=== PATIENT | female | born 1995 | race Two or more races ===

== ENCOUNTER 2017-09-20 10:28 | Emergency (ER) | payer SELFPAY ==
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
[2017-09-20 12:02] LABS: APPEARANCE,URINE SLIGHTLY-CLOUDY; BILIRUBIN,URINE NEGATIVE (NEGATIVE); GLUCOSE, URINE NEGATIVE (NEGATIVE); KETONES,URINE NEGATIVE (NEGATIVE); LEUKOCYTE ESTERASE,URINE SMALL (NEGATIVE); NITRITE,URINE NEGATIVE (NEGATIVE); PROTEIN,URINE NEGATIVE (NEGATIVE); URINE SPECIFIC GRAVITY 1.009; UROBILINOGEN,URINE NEGATIVE mg/dL (<2.0)
[2017-09-20] MEDS ORDERED: ACETAMINOPHEN 325 MG TABLET PO ONE (12:12)
--- NOTE | 2017-09-20 13:41 | RADIOLOGY REPORT (SQ) ---
EXAM DESCRIPTION: U/S NON OB PEL TV W/DOPPLER COMPLETED DATE/TIME: 09/20/2017 1:16 pm REASON FOR STUDY: rlq pain COMPARISON: None. TECHNIQUE: Dynamic and static grayscale images acquired of the pelvis via transvaginal approach and recorded on PACS. Additional selected color Doppler and spectral images recorded. LIMITATIONS: None. FINDINGS: UTERUS: Contour normal. There is a questionable uterine fibroid measuring 2.3 x 1.9 x 2.1 cm in diameters. ENDOMETRIAL STRIPE: No focal or generalized thickening. No masses. CERVIX: No nabothian cysts. RIGHT OVARY: Hypoechoic mass is identified with internal debris measuring 5.9 x 4.6 x 4.5 cm in diame ters. The differential possibilities would include a complex ovarian cyst versus possible endometriom a. RIGHT OVARY DOPPLER: Normal arterial vascular flow without evidence for torsion. LEFT OVARY: No abnormal masses. LEFT OVARY DOPPLER: Normal arterial vascular flow without evidence for torsion. FREE FLUID: None noted. OTHER: No other significant finding. MEASUREMENTS: UTERUS: 8.7 x 5.7 x 5.2 cm ENDOMETRIAL STRIPE: 4 paula RIGHT OVARY: 6.6 x 5.4 x 5.2 cm LEFT OVARY: 2.2 x 2.1 x 3.7 cm IMPRESSION: Hypoechoic mass involving the right ovary as noted above which could represent a complex ovarian cyst versus is a possible endometrioma. Other etiologies cannot be completely excluded. Fo llow-up is recommended. Possible small uterine fibroid. Other findings as noted above TECHNICAL DOCUMENTATION: JOB ID: [id number] All Rights Reserved
[2017-09-20 15:45] VITALS: BP 123/79
== END 2017-09-20 14:30 | disposition home or self-care (01) ==
LOC: ER 10:28
DX: N83.201 Unspecified ovarian cyst, right side (principal); R10.31 Right lower quadrant pain
CPT/HCPCS: 76830; 81001; 81025; 93976; 99284

== ENCOUNTER 2017-10-02 20:09 | Emergency (ER) | payer SELFPAY ==
--- NOTE | 2017-10-02 22:21 | ER Document Report ---
ED General - General Chief Complaint: Vaginal Bleeding Stated Complaint: VAGINAL BLEEDING Time Seen by Provider: 10/02/17 22:00 Notes: Patient is a 22-year-old female who presents with complaint of heavy vaginal bleeding. Patient says she has been bleeding since Sunday. She missed her period last month and this month started having bleeding. She says her menstrual periods are typically regular. She does have an Implanon in place it has been there for 4 years. She says that it has never regular.. She has been on the forms of control as well which have never regulated her periods. She said this menstrual period is heavy even for her. She said she is gone through 12 large tampons and 6 hours. She says she passes normal sinus clots. She denies any large clots. She says it is more of just a continuous flow. She denies any lightheadedness or dizziness. She denies any difficulty breathing. She has no other complaints at this time. She says she does smoke a a few cigarettes a day. TRAVEL OUTSIDE OF THE [place] IN LAST 30 DAYS: No - Related Data Allergies/Adverse Reactions: amoxicillin [Amoxicillin] Allergy (Verified 09/20/17 10:37) Past Medical History - Social History Smoking Status: Current Some Day Smoker Frequency of alcohol use: None Drug Abuse: None Family History: Reviewed & Not Pertinent Patient has suicidal ideation: No Patient has homicidal ideation: No Renal/ Medical History: Denies: Hx Peritoneal Dialysis - Immunizations Immunizations up to date: Yes Review of Systems - Review of Systems Notes: My Normal Review Basic REVIEW OF SYSTEMS: CONSTITUTIONAL : Denies fever, chills, or sweats. Denies recent illness. EENT: Some nasal congestion. CARDIOVASCULAR: Denies chest pain. GENITOURINARY: Denies difficulty urinating, painful urination, burning, frequency, or blood in urine. GASTROINTESTINAL: Mild lower abdominal pain. Denies nausea, vomiting, or diarrhea. FEMALE GENITOURINARY: Heavy vaginal bleeding MUSCULOSKELETAL: Denies neck or back pain or joint pain or swelling. SKIN: Denies rash or skin lesions. NEUROLOGICAL: Denies altered mental status or loss of consciousness. Denies headache. Denies weakness or paralysis or loss of use of either side. Denies problems with gait or speech. Denies sensory or motor loss. ALL OTHER SYSTEMS REVIEWED AND NEGATIVE. Physical Exam - Vital signs Vitals: Temp Pulse Resp BP Pulse Ox 98.6 F 89 18 121/85 98 10/02/17 20:36 10/02/17 20:36 10/02/17 20:36 10/02/17 20:36 10/02/17 20:36 - Notes Notes: General Appearance: Well nourished, alert, cooperative, no acute distress, no obvious discomfort. Vitals: reviewed, See vital signs table. Head: no swelling or tenderness to the head Eyes: PERRL, EOMI, Conjuctiva clear Mouth: No decreasd moisture Lungs: No wheezing, No rales, No rhonci, No accessory muscle use, good air exchange bilaterally. Heart: Normal rate, Regular rythm, No murmur, no rub Abdomen: Normal BS, soft, No rigidity, No reproducible abdominal tenderness palpation, No guarding, no rebound, Pelvic exam: No clots in cervical office. I do not see any cervical lesions on speculum exam. Smaller moderate amount of blood in vaginal canal. No large active hemorrhage at this time. No clots in vaginal canal. Extremities: strength 5/5 in all extremities, good pulses in all extremities, no swelling or tenderness in the extremities, no edema. Skin: warm, dry, appropriate color, no rash Neuro: speech clear, oriented x 3, normal affect, responds appropriately to questions. Course - Re-evaluation Re-evalutation: 10/03/17 06:30 Patient's has what appears to be signs of endometriosis on her previous ultrasound. This would explain why she has such irregular menstrual periods. Hemoglobin is normal. Pelvic exam shows some active vaginal bleeding but it is not a huge hemorrhage. Feel that the patient states be discharged home and I will refer her to gynecology. I informed her she must return to ER immediately if she has worsening heavy bleeding, lightheadedness, dizziness, difficulty breathing, or if she feels unwell. Patient agrees with plan and will be discharged home. Dictation of this chart was performed using voice recognition software; therefore, there may be some unintended grammatical errors. - Vital Signs Vital signs: Temp Pulse Resp BP Pulse Ox 99.1 F 97 18 131/81 H 98 10/03/17 01:10 10/03/17 01:10 10/03/17 01:10 10/03/17 01:10 10/03/17 01:10 - Laboratory Result Diagrams: 10/02/17 22:35 Discharge - Discharge Clinical Impression: Abnormal vaginal bleeding Condition: Good Disposition: HOME, SELF-CARE Additional Instructions: Your ultrasound from your previous visit has findings consistent with endmetriosis. This will cause symptoms very simialr to what you have been having including recurrent pain and heavy bleeding. Please call the land manager , Dr. Mayer, for a close follow up appointment and discuss removal of your Implanon and further treatment options for endometriosis. Please take Ibuprofen 800mg every 6 hours with food for pain. Please return to the ER if you have wosneing bleeding, fevers, feel light headed, have difficulty breathing, or feel unwell. Forms: Return to Work Referrals: MISSAEL MAYER MD [ACTIVE STAFF] - 10/04/17 (call the office for a close follw up appointment.)
[2017-10-02 23:02] LABS: ABSOLUTE EOSINOPHILS # (AUTO) 0.2 10^3/uL (0.0-0.6); ABSOLUTE LYMPHOCYTES (AUTO) 2.1 10^3/uL (0.5-4.7); ABSOLUTE MONOCYTES (AUTO) 0.6 10^3/uL (0.1-1.4); ABSOLUTE NEUT (AUTO) 7.5 10^3/uL (1.7-8.2); BASOPHILS % (AUTO) 0.4 % (0-2); EOSINOPHILS % (AUTO) 2.4 % (0-6); HEMATOCRIT 38.2 % (36.0-47.0); HEMOGLOBIN 13.1 g/dL (12.0-15.5); HGB HCT DIFFERENCE 1.1; LYMPHOCYTES % (AUTO) 20.3 % (13-45); MEAN CORPUSCULAR HEMOGLOBIN 30.1 pg (27.0-33.4); MEAN CORPUSCULAR HGB CONC 34.2 g/dL (32.0-36.0); MEAN CORPUSCULAR VOLUME 88 fl (80-97); MONOCYTES % (AUTO) 5.7 % (3-13); RED BLOOD COUNT 4.34 10^6/uL (3.72-5.28); RED CELL DISTRIBUTION WIDTH 13.6 % (11.5-14.0); SEGMENTED NEUTROPHILS % (AUTO) 71.2 % (42-78); WHITE BLOOD COUNT 10.5 10^3/uL (4.0-10.5)
[2017-10-03] MEDS ORDERED: IBUPROFEN 800 MG TABLET PO ONE (00:44)
[2017-10-03 01:17] VITALS: BP 131/81
== END 2017-10-03 01:25 | disposition home or self-care (01) ==
LOC: ER 20:09
DX: N93.8 Other specified abnormal uterine and vaginal bleeding (principal); F17.200 Nicotine dependence, unspecified, uncomplicated; Z88.0 Allergy status to penicillin
CPT/HCPCS: 36415; 84703; 85025; 86850; 86900; 86901; 99284

== ENCOUNTER 2017-12-22 16:56 | Emergency (ER) | payer SELFPAY ==
--- NOTE | 2017-12-22 17:31 | ER Document Report ---
ED Medical Screen (RME) - General Chief Complaint: Dizziness Stated Complaint: DIZZY Time Seen by Provider: 12/22/17 17:25 Notes: Patient says she has been experiencing dizziness for the past 3 days, all the time, each day. Also feels "faintness", but has never lost consciousness. She has a control implant in her left arm since 2013 and it is due to be removed soon. She is concerned that it may not be working and she might have become . Last period was December 04. Denies any nausea or vomiting. Denies diarrhea. In fact, she complains of having some constipation, but was able to have a bowel movement here. Has noticed some urinary frequency. Patient has had no abdominal surgeries. On no prescription medications. TRAVEL OUTSIDE OF THE [place] IN LAST 30 DAYS: No - Related Data Allergies/Adverse Reactions: amoxicillin [Amoxicillin] Allergy (Verified 09/20/17 10:37) Past Medical History - Social History Frequency of alcohol use: Occasional Drug Abuse: None Renal/ Medical History: Denies: Hx Peritoneal Dialysis - Immunizations Immunizations up to date: Yes Physical Exam - Vital signs Vitals: Temp Pulse Resp BP Pulse Ox 98.2 F 93 18 114/74 98 12/22/17 17:04 12/22/17 17:04 12/22/17 17:04 12/22/17 17:04 12/22/17 17:04 Course - Vital Signs Vital signs: Temp Pulse Resp BP Pulse Ox 98.2 F 93 18 114/74 98 12/22/17 17:04 12/22/17 17:04 12/22/17 17:04 12/22/17 17:04 12/22/17 17:04
--- NOTE | 2017-12-22 17:56 | EKG REPORT ---
SEVERITY:- NORMAL ECG - SINUS RHYTHM : Confirmed by: Reagan Carson MD 22-Dec-2017 17:56:17
[2017-12-22 18:03] LABS: ABSOLUTE EOSINOPHILS # (AUTO) 0.2 10^3/uL (0.0-0.6); ABSOLUTE LYMPHOCYTES (AUTO) 2.2 10^3/uL (0.5-4.7); ABSOLUTE MONOCYTES (AUTO) 0.5 10^3/uL (0.1-1.4); ABSOLUTE NEUT (AUTO) 3.5 10^3/uL (1.7-8.2); BASOPHILS % (AUTO) 0.7 % (0-2); EOSINOPHILS % (AUTO) 3.8 % (0-6); HEMOGLOBIN 13.4 g/dL (12.0-15.5); LYMPHOCYTES % (AUTO) 33.7 % (13-45); MEAN CORPUSCULAR HGB CONC 34.2 g/dL (32.0-36.0); MEAN CORPUSCULAR VOLUME 88 fl (80-97); MONOCYTES % (AUTO) 7.6 % (3-13); PLATELET COUNT 257 10^3/uL (150-450); RED BLOOD COUNT 4.46 10^6/uL (3.72-5.28); RED CELL DISTRIBUTION WIDTH 14.3 % (11.5-14.0); SEGMENTED NEUTROPHILS % (AUTO) 54.2 % (42-78); TOTAL CELLS COUNTED % (AUTO) 100 %; WHITE BLOOD COUNT 6.4 10^3/uL (4.0-10.5)
[2017-12-22 18:04] LABS: APPEARANCE,URINE CLEAR; BILIRUBIN,URINE NEGATIVE (NEGATIVE); COLOR,URINE YELLOW; GLUCOSE, URINE NEGATIVE (NEGATIVE); KETONES,URINE NEGATIVE (NEGATIVE); LEUKOCYTE ESTERASE,URINE TRACE (NEGATIVE); NITRITE,URINE NEGATIVE (NEGATIVE); PROTEIN,URINE NEGATIVE (NEGATIVE); URINE SPECIFIC GRAVITY 1.012; UROBILINOGEN,URINE NEGATIVE mg/dL (<2.0)
[2017-12-22 18:25] LABS: ALANINE AMINOTRANSFERASE 31 U/L (9-52); ALBUMIN 4.4 g/dL (3.5-5.0); ALKALINE PHOSPHATASE 61 U/L (38-126); ANION GAP 11 (5-19); ASPARTATE AMINO TRANSFERASE 28 U/L (14-36); BILIRUBIN,DIRECT 0.2 mg/dL (0.0-0.4); BILIRUBIN,TOTAL 0.4 mg/dL (0.2-1.3); BLOOD UREA NITROGEN 12 mg/dL (7-20); CALCIUM 9.9 mg/dL (8.4-10.2); CARBON DIOXIDE 25 mmol/L (22-30); CHLORIDE 104 mmol/L (98-107); GLUCOSE 74 mg/dL (75-110); POTASSIUM 4.6 mmol/L (3.6-5.0); SODIUM 140.1 mmol/L (137-145); TOTAL PROTEIN 7.3 g/dL (6.3-8.2)
[2017-12-22 18:40] LABS: FREE T4 (FREE THYROXINE) 0.99 ng/dL (0.78-2.19)
[2017-12-22 18:53] LABS: THYROID STIMULATING HORMONE 0.61 uIU/mL (0.47-4.68)
--- NOTE | 2017-12-22 19:15 | ER Document Report ---
ED General - General Chief Complaint: Abdominal Pain Stated Complaint: DIZZY Time Seen by Provider: 12/22/17 17:25 Notes: Patient is a 22-year-old female without past medical history who presents with multiple complaints. Patient reports that for the past 3 days she has had intermittent lightheadedness, body aches, abdominal cramping, numbness and tingling in all of her extremities, and a headache. Nothing seems to improve or worsen the symptoms. She is uncertain whether or not she has had similar symptoms in the past. She has not seen her primary doctor regarding today's concerns. She denies any focal weakness, inability to ambulate, persistent vomiting, vaginal bleeding, vaginal discharge, or hematuria. She does note intermittent dysuria. TRAVEL OUTSIDE OF THE [place] IN LAST 30 DAYS: No - Related Data Allergies/Adverse Reactions: amoxicillin [Amoxicillin] Allergy (Verified 09/20/17 10:37) Past Medical History - General Information source: Patient - Social History Smoking Status: Never Smoker Chew tobacco use (# tins/day): No Frequency of alcohol use: None Drug Abuse: None Lives with: Family Family History: Reviewed & Not Pertinent Patient has suicidal ideation: No Patient has homicidal ideation: No Renal/ Medical History: Denies: Hx Peritoneal Dialysis - Immunizations Immunizations up to date: Yes Review of Systems - Review of Systems Notes: Constitutional: Negative for fever. HENT: Negative for sore throat. Eyes: Negative for visual changes. Cardiovascular: Negative for chest pain. Respiratory: Negative for shortness of breath. Gastrointestinal: Positive for abdominal cramping Genitourinary: Positive for dysuria. Musculoskeletal: Negative for back pain. Skin: Negative for rash. Neurological: Positive for intermittent headaches and paresthesias. 10 point ROS negative except as marked above and in HPI. Physical Exam - Vital signs Vitals: Temp Pulse Resp BP Pulse Ox 98.2 F 93 18 114/74 98 12/22/17 17:04 12/22/17 17:04 12/22/17 17:04 12/22/17 17:04 12/22/17 17:04 Interpretation: Normal Notes: PHYSICAL EXAMINATION: GENERAL: Well-appearing, well-nourished and in no acute distress. HEAD: Atraumatic, normocephalic. EYES: Pupils equal round and reactive to light, extraocular movements intact, sclera anicteric, conjunctiva are normal. ENT: nares patent, oropharynx clear without exudates. Moist mucous membranes. NECK: Normal range of motion, supple without lymphadenopathy LUNGS: Breath sounds clear to auscultation bilaterally and equal. No wheezes rales or rhonchi. HEART: Regular rate and rhythm without murmurs ABDOMEN: Soft, nontender, normoactive bowel sounds. No guarding, no rebound. No masses appreciated. EXTREMITIES: Normal range of motion, no pitting or edema. No cyanosis. NEUROLOGICAL: No focal neurological deficits. Moves all extremities spontaneously and on command. PSYCH: Normal mood, normal affect. SKIN: Warm, Dry, normal turgor, no rashes or lesions noted. Course - Re-evaluation Re-evalutation: 12/22/17 19:11 Patient presents with multiple vague complaints that did not appear to be concerning for any acute life-threatening pathology. Vitals are within normal limits at triage and at time of discharge. Physical examination is unremarkable. Patient has tolerated oral intake without difficulty. Patient was not noted to be in distress at any point during their ER visit. At this time, based on the reassuring evaluation, I do not suspect an acute PA, pulmonary embolus, aortic dissection, acute intra-abdominal pathology, stroke, or sepsis.Will discharge with return precautions and follow-up recommendations. Verbal discharge instructions given a the bedside and opportunity for questions given. Medication warnings reviewed. Patient is in agreement with this plan and has verbalized understanding of return precautions and the need for primary care follow-up in the next 24-72 hours. - Vital Signs Vital signs: Temp Pulse Resp BP Pulse Ox 98.2 F 75 14 116/74 98 12/22/17 19:46 12/22/17 19:46 12/22/17 19:46 12/22/17 19:46 12/22/17 19:46 - Laboratory Result Diagrams: 12/22/17 17:45 12/22/17 17:45 Laboratory results interpreted by me: 12/22/17 12/22/17 12/22/17 17:45 17:45 17:45 RDW 14.3 H Glucose 74 L Ur Leukocyte Esterase TRACE H - EKG Interpretation by Me Additional EKG results interpreted by me: 12/22/17 19:13 Sinus rhythm. Rate 66. No ST elevations or depressions. QTC is 390. Discharge - Discharge Clinical Impression: Multiple complaints, Lightheadedness, Dysuria Condition: Good Disposition: HOME, SELF-CARE Additional Instructions: Please return to the emergency room immediately if you experience any concerning symptoms including high fevers, severe headache, chest pain, difficulty breathing, abdominal pain, slurred speech, numbness or weakness in your arms or legs, or any other symptom that concerns you. Your labs and EKG are all normal. Please continue to stay very hydrated drinking plenty of water throughout the day. Forms: Return to Work
[2017-12-22 19:48] VITALS: BP 116/74
== END 2017-12-22 19:50 | disposition home or self-care (01) ==
LOC: ER 16:56
DX: R42 Dizziness and giddiness (principal); R30.0 Dysuria; R10.9 Unspecified abdominal pain; R20.0 Anesthesia of skin; R20.2 Paresthesia of skin; R51 Headache; Z88.0 Allergy status to penicillin
CPT/HCPCS: 36415; 80053; 81001; 81025; 84439; 84443; 85025; 93005; 93010; 99284

== ENCOUNTER 2018-02-28 10:14 | Emergency (ER) | payer SELFPAY ==
--- NOTE | 2018-02-28 10:26 | ER Document Report ---
ED GI/ - General Chief Complaint: Pelvic Pain Stated Complaint: PELVIC PAIN Time Seen by Provider: 02/28/18 10:26 Mode of Arrival: Ambulatory Information source: Patient Notes: 23-year-old female complaining of bilateral pelvic pain and heavy vaginal bleeding that started yesterday. She has had intermittent pink spotting for months and heavy vaginal bleeding 2 weeks ago. She does have a neck: None that has been in her left arm for 4 years. No other control used. No vaginal discharge or odor. No dysuria. No dyspareunia. No fever or chills. No back pain. She was diagnosed with an endometrioma in 2017 on the right and possible small fibroid. She has not seen DIRECTOR OF PLANT OPERATIONS. The Nexplanon was put in by [employer] and she no longer sees them as they are no longer in the . TRAVEL OUTSIDE OF THE [place] IN LAST 30 DAYS: No - Related Data Allergies/Adverse Reactions: amoxicillin [Amoxicillin] Allergy (Verified 02/28/18 10:26) Past Medical History - General Information source: Patient - Social History Smoking Status: Never Smoker Frequency of alcohol use: None Drug Abuse: None Lives with: Family Family History: Reviewed & Not Pertinent - Medical History Notes: Renal/ Medical History: Denies: Hx Peritoneal Dialysis Surgical Hx: Negative - Immunizations Immunizations up to date: Yes Review of Systems - Review of Systems Constitutional: No symptoms reported EENT: No symptoms reported Cardiovascular: No symptoms reported Respiratory: No symptoms reported Gastrointestinal: No symptoms reported Genitourinary: No symptoms reported Female Genitourinary: No symptoms reported, See HPI Musculoskeletal: No symptoms reported Skin: No symptoms reported Hematologic/Lymphatic: No symptoms reported Neurological/Psychological: No symptoms reported Physical Exam - Vital signs Vitals: Temp Pulse Resp BP Pulse Ox 98.4 F 78 16 120/83 97 02/28/18 10:18 02/28/18 10:18 02/28/18 10:18 02/28/18 10:18 02/28/18 10:18 Interpretation: Normal - General General appearance: Appears well, Alert - HEENT Head: Normocephalic, Atraumatic Eyes: Normal Pupils: PERRL Mouth/Lips: Normal Neck: Supple - Respiratory Respiratory status: No respiratory distress Chest status: Nontender Breath sounds: Normal Chest palpation: Normal - Cardiovascular Rhythm: Regular Heart sounds: Normal auscultation Murmur: No - Abdominal Inspection: Normal Distension: No distension Bowel sounds: Normal Tenderness: Tender - minaml bilateral lower pelvic Organomegaly: No organomegaly - Back Back: Normal, Nontender. No: CVA tenderness - Extremities General upper extremity: Normal inspection, Nontender, Normal color, Normal ROM , Normal temperature General lower extremity: Normal inspection, Nontender, Normal color, Normal ROM , Normal temperature, Normal weight bearing. No: Gerson's sign - Neurological Neuro grossly intact: Yes Cognition: Normal Orientation: AAOx4 [place] Coma Scale Eye Opening: Spontaneous [place] Coma Scale Verbal: Oriented Zach Coma Scale Motor: Obeys Commands [place] Coma Scale Total: 15 Speech: Normal Motor strength normal: LUE, RUE, LLE, RLE Sensory: Normal - Psychological Associated symptoms: Normal affect, Normal mood - Skin Skin Temperature: Warm Skin Moisture: Dry Skin Color: Normal Course - Re-evaluation Re-evalutation: 02/28/18 11:25 Urinalysis shows 12 RBCs she is bleeding at this time there is a trace of bacteria I will add a urine culture test is negative and wet mount shows 4+ RBCs 3+ bacteria and 3+ epis. Will treat with Flagyl for bacterial vaginosis and have advised her that the Nexplanon is no longer protecting her from that she will need to use another form of control. 02/28/18 12:21 No signs of endometrioma or ovarian cyst on ultrasound. - Vital Signs Vital signs: Temp Pulse Resp BP Pulse Ox 98.4 F 78 16 120/83 97 02/28/18 10:18 02/28/18 10:18 02/28/18 10:18 02/28/18 10:18 02/28/18 10:18 - Laboratory Laboratory results interpreted by me: 02/28/18 10:50 Urine Blood LARGE H Discharge - Discharge Clinical Impression: vagainal bleeding, Bacterial vaginosis, Pelvic pain Condition: Good Disposition: HOME, SELF-CARE Instructions: [facility] [facility], Pelvic Pain ([facility]), Metronidazole ([facility]), Vaginosis , Bacterial ([facility]), Ibuprofen (General) ([facility]) Additional Instructions: see obgyn for the nexplanon removal flagyl twice a day for 1 week, do not drink alcohol when taking this medication Return to the emergency room any worsening of symptoms Copy of labs and ultrasound results given to you Prescriptions: Ibuprofen [Motrin 800 mg Tablet] 800 mg PO Q8HP PRN #30 tablet PRN Reason: Metronidazole [Flagyl 500 mg Tablet] 500 mg PO BID #14 tablet Forms: Return to Work
[2018-02-28 11:10] LABS: BACTERIA (WET MOUNT) 3+ BACTERIA SEEN; EPITHELIALS (WET MOUNT) 3+ EPITHELIALS SEEN; RBCS (WET MOUNT) 4+ RBCS SEEN; T.VAGINALIS (WET MOUNT) NO TRICHOMONAS SEEN; WBCS (WET MOUNT) 1+ WBCS SEEN; YEAST (WET MOUNT) NO YEAST SEEN
[2018-02-28 11:17] LABS: APPEARANCE,URINE CLEAR; BILIRUBIN,URINE NEGATIVE (NEGATIVE); COLOR,URINE STRAW; GLUCOSE, URINE NEGATIVE (NEGATIVE); KETONES,URINE NEGATIVE (NEGATIVE); LEUKOCYTE ESTERASE,URINE NEGATIVE (NEGATIVE); NITRITE,URINE NEGATIVE (NEGATIVE); PROTEIN,URINE NEGATIVE (NEGATIVE); UROBILINOGEN,URINE NEGATIVE mg/dL (<2.0)
--- NOTE | 2018-02-28 12:10 | RADIOLOGY REPORT (SQ) ---
EXAM DESCRIPTION: U/S NON OB PEL TV W/DOPPLER COMPLETED DATE/TIME: 02/28/2018 11:55 am REASON FOR STUDY: pelvic pain, heavy vaginal bleeding COMPARISON: None. TECHNIQUE: Dynamic and static grayscale images acquired of the pelvis via transvaginal approach and recorded on PACS. Additional selected color Doppler and spectral images recorded. LIMITATIONS: None. FINDINGS: UTERUS: Contour normal. No mass. ENDOMETRIAL STRIPE: No focal or generalized thickening. No masses. CERVIX: No nabothian cysts. RIGHT OVARY AND DOPPLER: Normal size. No worrisome masses. Normal arterial vascular flow without evid ence for torsion. LEFT OVARY AND DOPPLER: Normal size. No worrisome masses. Normal arterial vascular flow without evide nce for torsion. FREE FLUID: None noted. OTHER: No other significant finding. MEASUREMENTS: UTERUS: 8.0 x 4.5 x 5.1 cm ENDOMETRIAL STRIPE: 3 mm RIGHT OVARY: 4.0 x 3.0 x 3.2 cm LEFT OVARY: 4.6 x 1.8 x 2.8 cm IMPRESSION: NORMAL TRANSVAGINAL PELVIC ULTRASOUND. TECHNICAL DOCUMENTATION: JOB ID: [id number]- All Rights Reserved Rev Reading location - IP/workstation name: [id number]
[2018-02-28 12:26] VITALS: BP 109/77
[2018-02-28 12:41] LABS: CHLAM PCR NOT DETECTED (NOT DETECT); GON PCR NOT DETECTED (NOT DETECT)
== END 2018-02-28 12:34 | disposition home or self-care (01) ==
LOC: ER 10:14
DX: N76.0 Acute vaginitis (principal); B96.89 Other specified bacterial agents as the cause of diseases classified elsewhere; R10.2 Pelvic and perineal pain; N93.8 Other specified abnormal uterine and vaginal bleeding; Z88.0 Allergy status to penicillin; Z97.5 Presence of (intrauterine) contraceptive device
CPT/HCPCS: 76830; 81001; 81025; 87086; 87210; 87491; 87591; 93976; 99284

== ENCOUNTER 2018-03-02 17:11 | Emergency (ER) | payer SELFPAY ==
[2018-03-02] MEDS ORDERED: DIPH/PERTUSS(ACELL)/TETANUS VAC/PF 0.5 ML SYR (>=10YO) IM ONE (17:39)
--- NOTE | 2018-03-02 17:39 | ER Document Report ---
ED Medical Screen (RME) - General Chief Complaint: Arm Injury Stated Complaint: HAND LACERATION Time Seen by Provider: 03/02/18 17:37 Notes: Patient is a 23-year-old female presents emergency department after punching through a thin glass window. Patient admits to lacerations on the ventral surface of the right forearm. She denies any pain in her fingers, wrist or hand. She is full range of motion equal tennis player strength bilaterally. Unaware of tetanus status. Allergic to amoxicillin. TRAVEL OUTSIDE OF THE [place] IN LAST 30 DAYS: No - Related Data Allergies/Adverse Reactions: amoxicillin [Amoxicillin] Allergy (Verified 03/02/18 17:18) Past Medical History Renal/ Medical History: Denies: Hx Peritoneal Dialysis - Immunizations Immunizations up to date: Yes Physical Exam - Vital signs Vitals: Temp Pulse Resp BP Pulse Ox 98.9 F 118 H 22 H 128/113 H 97 03/02/18 17:20 03/02/18 17:20 03/02/18 17:20 03/02/18 17:20 03/02/18 17:20 - Notes Notes: Lacerations noted on the ventral surface of the right forearm with minimal oozing active bleeding. Wounds without underlying tendon injury or muscle involvement. Approximately 4 lacerations total 3 involving subcutaneous fat and a third into the dermis equivalent with a skin tear. Pressure dressing applied Course - Vital Signs Vital signs: Temp Pulse Resp BP Pulse Ox 98.9 F 118 H 22 H 128/113 H 97 03/02/18 17:20 03/02/18 17:20 03/02/18 17:20 03/02/18 17:20 03/02/18 17:20
[2018-03-02] MEDS ORDERED: LIDOCAINE 1% INJ-PF (10 MG/ML) 30 ML SDV INJ ONE (17:41)
[2018-03-02] MEDS ORDERED: ACETAMINOPHEN 325 MG TABLET PO ONE (17:41)
--- NOTE | 2018-03-02 18:10 | RADIOLOGY REPORT (SQ) ---
EXAM DESCRIPTION: HAND RIGHT 3 VIEWS COMPLETED DATE/TIME: 03/02/2018 6:00 pm REASON FOR STUDY: punched a window, FB COMPARISON: None. EXAM PARAMETERS: NUMBER OF VIEWS: Three views. TECHNIQUE: AP, lateral and oblique radiographic images acquired of the right hand. LIMITATIONS: None. FINDINGS: MINERALIZATION: Normal. BONES: No acute fracture or dislocation. No worrisome bone lesions. JOINTS: No effusions. SOFT TISSUES: No soft tissue swelling. No foreign body. OTHER: No other significant finding. IMPRESSION: NEGATIVE STUDY OF THE RIGHT HAND. NO RADIOGRAPHIC EVIDENCE OF ACUTE INJURY. TECHNICAL DOCUMENTATION: JOB ID: [id number] [employer]- All Rights Reserved Reading location - IP/workstation name: [email or web address]
--- NOTE | 2018-03-02 18:12 | RADIOLOGY REPORT (SQ) ---
EXAM DESCRIPTION: WRIST RIGHT 3 VIEWS COMPLETED DATE/TIME: 03/02/2018 6:00 pm REASON FOR STUDY: punched a window, FB COMPARISON: None. NUMBER OF VIEWS: Three views. TECHNIQUE: AP, lateral, and oblique radiographic images acquired of the right wrist. LIMITATIONS: None. FINDINGS: MINERALIZATION: Normal. BONES: No acute fracture or dislocation. No worrisome bone lesions. Normal alignment. SOFT TISSUES: No soft tissue swelling. No foreign body. OTHER: Radiopaque bandage artifact overlying distal right forearm. No definite radiopaque foreign loni dy seen. IMPRESSION: NO DEFINITE RADIOPAQUE FOREIGN BODY. NO FRACTURE SEEN. TECHNICAL DOCUMENTATION: JOB ID: [id number] SC-[id number] 2010 [employer]- All Rights Reserved Reading location - IP/workstation name: [email or web address]
--- NOTE | 2018-03-02 19:41 | ER Document Report ---
ED General - General Chief Complaint: Arm Injury Stated Complaint: HAND LACERATION Time Seen by Provider: 03/02/18 17:37 Notes: Patient is a 23 year old female without chronic medical problems who presents after she punched a window. Patient sustained multiple lacerations to her right forearm as well as bruising to her right hand. She notes a dull, aching, throbbing pain to the affected areas. Touching the areas worsens the pain. Nothing improves the pain. She denies sustaining additional injuries today. She denies any weakness or numbness. She is right-hand dominant. Her tetanus is not up-to-date. She has not seen her primary doctor regarding today's concerns. TRAVEL OUTSIDE OF THE [place] IN LAST 30 DAYS: No - Related Data Allergies/Adverse Reactions: amoxicillin [Amoxicillin] Allergy (Verified 03/02/18 17:18) Past Medical History - General Information source: Patient - Social History Smoking Status: Current Every Day Smoker Chew tobacco use (# tins/day): No Frequency of alcohol use: Occasional Drug Abuse: None Lives with: Spouse/Significant other Family History: Reviewed & Not Pertinent Patient has suicidal ideation: No Patient has homicidal ideation: No Renal/ Medical History: Denies: Hx Peritoneal Dialysis - Immunizations Immunizations up to date: Yes Review of Systems - Review of Systems Notes: Constitutional: Negative for fever. Eyes: Negative for visual changes. ENT: Negative for facial injury Cardiovascular: Negative for chest injury. Respiratory: Negative for shortness of breath. Gastrointestinal: Negative for abdominal injury. Genitourinary: Negative for genital injury Musculoskeletal: Positive for right hand injury Skin: Positive for multiple right forearm lacerations Neurological: Negative for head injury. Physical Exam - Vital signs Vitals: Temp Pulse Resp BP Pulse Ox 98.9 F 118 H 22 H 128/113 H 97 03/02/18 17:20 03/02/18 17:20 03/02/18 17:20 03/02/18 17:20 03/02/18 17:20 Interpretation: Tachycardic, Hypoxic Notes: PHYSICAL EXAMINATION: GENERAL: Well-appearing, well-nourished and in no acute distress. HEAD: Atraumatic, normocephalic. EYES: Pupils equal round and reactive to light, extraocular movements intact, sclera anicteric, conjunctiva are normal. ENT: nares patent, oropharynx clear without exudates. Moist mucous membranes. NECK: Normal range of motion, supple without lymphadenopathy LUNGS: Breath sounds clear to auscultation bilaterally and equal. No wheezes rales or rhonchi. HEART: Regular rate and rhythm without murmurs ABDOMEN: Soft, nontender, normoactive bowel sounds. No guarding, no rebound. No masses appreciated. EXTREMITIES: AIN, PIN, IO intact bilaterally. RMU sensory distribution intact. Full flexion and extension against resistance of the PIP, DIP and MCP of all digits of the right hand. Mild bruising over the dorsum of the right hand. No obvious deformity of the right hand or wrist. NEUROLOGICAL: No focal neurological deficits. Moves all extremities spontaneously and on command. PSYCH: Normal mood, normal affect. SKIN: Warm, Dry, normal turgor, there are multiple lacerations over the right forearm. There is a 6 cm horizontal laceration over the proximal central forearm with exposure of subcutaneous fat with associated contused tissue. There is a flap type 3 centimeter laceration to the central lateral aspect of the right forearm. Directly below the 6 cm laceration there is an additional 1 cm horizontal laceration. There is an irregular 2 cm laceration to the medial central aspect of the right forearm. Multiple additional superficial abrasions Course - Re-evaluation Re-evalutation: 03/02/18 19:39 Patient presents with multiple lacerations of the right central forearm after punching a window. X-rays of the right hand and wrist are normal without any evidence of acute fracture or dislocation. There is no evidence of retained foreign body. 4 wounds required repair. Please see procedure note for details. These were all closed after irrigation and sterilization. The patient 's tetanus was updated. She has full flexion extension of all digits of the right hand at the DIP, MCP and PIP. Patient has no obvious trauma to the right hand although does complain of some general soreness. X-ray is negative for any fractures. At this time will discharge with return precautions and follow- up recommendations. Verbal discharge instructions given a the bedside and opportunity for questions given. Medication warnings reviewed. Patient is in agreement with this plan and has verbalized understanding of return precautions and the need for primary care follow-up in the next 24-72 hours. - Vital Signs Vital signs: Temp Pulse Resp BP Pulse Ox 98.6 F 84 16 110/72 98 03/02/18 19:51 03/02/18 19:51 03/02/18 19:51 03/02/18 19:51 03/02/18 19:51 - Diagnostic Test Radiology reviewed: Image reviewed, Reports reviewed Radiology results interpreted by me: 03/02/18 19:40 Right hand x-ray: No acute fracture or dislocation Right wrist x-ray: No acute fracture or dislocation Procedures - Laceration/Wound Repair Central forearm Wound length (cm): 6 Wound's Depth, Shape: Superficial Laceration pre-procedure: Sterile PPE donned Anesthetic type: 1% Lidocaine Volume Anesthetic (mLs): 4 Wound explored: Clean Irrigated w/ Saline (mLs): 500 Wound Debrided: Moderate Wound Repaired With: Sutures Suture Size/Type: 4:0 Number of Sutures: 2 - 1 horizontal mattress, running stitch Layer Closure?: No Post-procedure wound care: Sterile dressing applied Post-procedure NV exam normal: Yes Complications: No Central forearm 2 Wound length (cm): 3 Wound's Depth, Shape: Irregular, Flap, Contused tissue Laceration pre-procedure: Sterile PPE donned Anesthetic type: 1% Lidocaine Volume Anesthetic (mLs): 1 Wound explored: Clean Irrigated w/ Saline (mLs): 300 Wound Debrided: Moderate Wound Repaired With: Sutures Suture Size/Type: 4:0 Number of Sutures: 3 Post-procedure wound care: Sterile dressing applied Post-procedure NV exam normal: Yes Complications: No Central forearm 3 Wound length (cm): 1 Wound's Depth, Shape: Superficial Laceration pre-procedure: Sterile PPE donned Anesthetic type: 1% Lidocaine Volume Anesthetic (mLs): 1 Wound explored: Clean Irrigated w/ Saline (mLs): 200 Wound Debrided: Minimal Wound Repaired With: Sutures Suture Size/Type: 4:0 Number of Sutures: 1 Post-procedure wound care: Sterile dressing applied Post-procedure NV exam normal: Yes Complications: No Central forearm 4 Wound length (cm): 2 Wound's Depth, Shape: Superficial, Irregular Laceration pre-procedure: Sterile PPE donned Anesthetic type: 1% Lidocaine Volume Anesthetic (mLs): 1 Wound explored: Clean Irrigated w/ Saline (mLs): 300 Wound Debrided: Minimal Wound Repaired With: Sutures Suture Size/Type: 4:0 Number of Sutures: 1 Layer Closure?: No Post-procedure wound care: Sterile dressing applied Post-procedure NV exam normal: Yes Complications: No Discharge - Discharge Clinical Impression: Multiple lacerations right forearm Laceration of right forearm Qualifiers: Encounter type: initial encounter Qualified Code(s): S51.811A - Laceration without foreign body of right forearm, initial encounter Abrasion of forearm, right Qualifiers: Encounter type: initial encounter Qualified Code(s): S50.811A - Abrasion of right forearm, initial encounter Injury of right hand Qualifiers: Encounter type: initial encounter Qualified Code(s): S69.91XA - Unspecified injury of right wrist, hand and finger(s), initial encounter Condition: Good Disposition: HOME, SELF-CARE Additional Instructions: Please return to your primary doctor, the ED, or an urgent care in 7 days for suture removal. Return immediately if you develop spreading redness around the wound, pus from the wound, worsening pain, or a fever of >100.4. Keep the area clean and dry. Wash gently with soap and water twice daily and cover with antibiotic ointment. Forms: Return to Work
[2018-03-02 20:03] VITALS: BP 110/72
== END 2018-03-02 20:04 | disposition home or self-care (01) ==
LOC: ER 17:11
PROC: 0HQDXZZ Repair Right Lower Arm Skin, External Approach (ICD-10-PCS; principal; 2018-03-02)
DX: S51.811A Laceration without foreign body of right forearm, initial encounter (principal); S61.411A Laceration without foreign body of right hand, initial encounter; S50.811A Abrasion of right forearm, initial encounter; S69.91XA Unspecified injury of right wrist, hand and finger(s), initial encounter; W22.8XXA Striking against or struck by other objects, initial encounter; F17.200 Nicotine dependence, unspecified, uncomplicated
CPT/HCPCS: 99283; 90471; 73130; 73110; 90715; 12004; J3490

== ENCOUNTER 2018-05-22 21:43 | Emergency (ER) | payer SELFPAY ==
[2018-05-22 21:49] VITALS: BP 120/82
== END 2018-05-23 00:23 | disposition left against medical advice (07) ==
LOC: ER 21:43
DX: Z53.21 Procedure and treatment not carried out due to patient leaving prior to being seen by health care provider (principal)

== ENCOUNTER 2018-10-28 10:25 | Emergency (ER) | payer SELFPAY ==
[2018-10-28 10:44] VITALS: BP 128/87
--- NOTE | 2018-10-28 11:22 | ER Document Report ---
ED Medical Screen (RME) - General Chief Complaint: Lower Abdominal Pain Stated Complaint: PELVIC PAIN, VAGINAL SPOTTING, DIZZY Time Seen by Provider: 10/28/18 11:06 Notes: RAPID MEDICAL EVALUATION DISCLOSURE I have seen this patient as part of a Rapid Medical Evaluation and, if applicable, placed any initially appropriate orders. The patient will be seen and fully evaluated, including a full history and physical exam, by a provider (in Main ED or Fast Track) when a room becomes available. 23-year-old female here with complaints of lower abdominal pain urinary frequency lightheadedness vaginal spotting ongoing for the past 7 days. She states that feels somewhat similar to her endometriosis. She has not taken anything for the symptoms. Denies any other urinary symptoms other than frequency. EXAM CTAB RRR Mild lower quadrant TTP No peritoneal signs TRAVEL OUTSIDE OF THE [place] IN LAST 30 DAYS: No - Related Data Allergies/Adverse Reactions: amoxicillin [Amoxicillin] Allergy (Verified 10/28/18 10:32) Past Medical History - Social History Chew tobacco use (# tins/day): No Frequency of alcohol use: Social Drug Abuse: None Renal/ Medical History: Denies: Hx Peritoneal Dialysis - Immunizations Immunizations up to date: Yes Physical Exam - Vital signs Vitals: Temp Pulse Resp BP Pulse Ox 98.4 F 69 18 128/87 H 99 10/28/18 10:42 10/28/18 10:42 10/28/18 10:42 10/28/18 10:42 10/28/18 10:42 Course - Vital Signs Vital signs: Temp Pulse Resp BP Pulse Ox 98.4 F 69 18 128/87 H 99 10/28/18 10:42 10/28/18 10:42 10/28/18 10:42 10/28/18 10:42 10/28/18 10:42
[2018-10-28 12:09] LABS: APPEARANCE,URINE CLEAR; BILIRUBIN,URINE NEGATIVE (NEGATIVE); COLOR,URINE YELLOW; GLUCOSE, URINE NEGATIVE (NEGATIVE); KETONES,URINE NEGATIVE (NEGATIVE); LEUKOCYTE ESTERASE,URINE NEGATIVE (NEGATIVE); NITRITE,URINE NEGATIVE (NEGATIVE); PROTEIN,URINE NEGATIVE (NEGATIVE); URINE SPECIFIC GRAVITY 1.011; UROBILINOGEN,URINE NEGATIVE mg/dL (<2.0)
--- NOTE | 2018-10-28 12:35 | ER Document Report ---
ED General - General Chief Complaint: Lower Abdominal Pain Stated Complaint: PELVIC PAIN, VAGINAL SPOTTING, DIZZY Time Seen by Provider: 10/28/18 11:06 Notes: 23-year-old female here with complaints of lower abdominal pain urinary frequency lightheadedness vaginal spotting ongoing for the past 7 days. She states that feels somewhat similar to her endometriosis. She has not taken anything for the symptoms. Denies any other urinary symptoms other than frequency. TRAVEL OUTSIDE OF THE [place] IN LAST 30 DAYS: No - Related Data Allergies/Adverse Reactions: amoxicillin [Amoxicillin] Allergy (Verified 10/28/18 10:32) Past Medical History - Social History Smoking Status: Current Every Day Smoker Chew tobacco use (# tins/day): No Frequency of alcohol use: Social Drug Abuse: None Family History: Reviewed & Not Pertinent Patient has suicidal ideation: No Patient has homicidal ideation: No Renal/ Medical History: Denies: Hx Peritoneal Dialysis - Immunizations Immunizations up to date: Yes Review of Systems - Review of Systems Notes: RAPID MEDICAL EVALUATION DISCLOSURE I have seen this patient as part of a Rapid Medical Evaluation and, if applicable, placed any initially appropriate orders. The patient will be seen and fully evaluated, including a full history and physical exam, by a provider (in Main ED or Fast Track) when a room becomes available. Physical Exam - Vital signs Vitals: Temp Pulse Resp BP Pulse Ox 98.4 F 69 18 128/87 H 99 10/28/18 10:42 10/28/18 10:42 10/28/18 10:42 10/28/18 10:42 10/28/18 10:42 - Notes Notes: PHYSICAL EXAMINATION: GENERAL: Well-appearing and in no acute distress. HEAD: Atraumatic, normocephalic. EYES: Pupils equal round and reactive to light, extraocular movements intact, sclera anicteric, conjunctiva are normal. ENT: nares patent, oropharynx clear without exudates. Moist mucous membranes. NECK: Normal range of motion, supple without lymphadenopathy LUNGS: CTAB and equal. No wheezes rales or rhonchi. HEART: Regular rate and rhythm without murmurs ABDOMEN: Soft, minimal lower quadrant tenderness. No facial grimacing/wincing upon palpation. No guarding, no rebound. No peritoneal signs EXTREMITIES: Normal range of motion, no pitting edema. No cyanosis. NEUROLOGICAL: Cranial nerves grossly intact. Normal sensory/motor exams. PSYCH: Normal mood, normal affect. SKIN: Warm, Dry, normal turgor, no rashes or lesions noted Course - Re-evaluation Re-evalutation: 10/28/18 12:32 MEDICAL DECISION MAKING: Concern for endometriosis flare UTI Urinalysis does not show infection and urine is negative Given the history and exam findings, I suspect she is having endometriosis flare We will prescribe meloxicam tramadol and instructed follow-up PCP next day or few Patient understands and agrees to the plan of care - Vital Signs Vital signs: Temp Pulse Resp BP Pulse Ox 98.4 F 69 18 128/87 H 99 10/28/18 10:42 10/28/18 10:42 10/28/18 10:42 10/28/18 10:42 10/28/18 10:42 - Laboratory Laboratory results interpreted by me: 10/28/18 11:46 Urine Blood SMALL H Discharge - Discharge Clinical Impression: Lower abdominal pain Condition: Good Disposition: HOME, SELF-CARE Additional Instructions: Use the prescribed medication as needed for pain. The MELOXICAM will not make you sleepy. The TRAMADOL will have a sedating effect. You were seen in the emergency department at [facility]. If you were given any sedating medications, be sure not to operate heavy machinery (example - driving) and be sure you are not too sedated to walk appropriately. Please followup with your primary physician in the next few days for further management/evaluation. Please return to the emergency department for worsening of symptoms or any symptom that you deem to be concerning or life-threatening. Thank you for allowing us to be part of your care. This documentation serves for your record of your emergency department visit today on October 28, 2018. Prescriptions: Tramadol HCl [Ultram 50 mg Tablet] 50 mg PO Q6HP PRN #14 tablet PRN Reason: Meloxicam [Mobic] 7.5 mg PO DAILYP PRN #7 tablet PRN Reason:
== END 2018-10-28 12:45 | disposition home or self-care (01) ==
LOC: ER 10:25
DX: R10.30 Lower abdominal pain, unspecified (principal); R42 Dizziness and giddiness; N93.8 Other specified abnormal uterine and vaginal bleeding; F17.200 Nicotine dependence, unspecified, uncomplicated; Z88.0 Allergy status to penicillin
CPT/HCPCS: 81001; 81025; 99284

== ENCOUNTER 2018-11-07 11:54 | Emergency (ER) | payer SELFPAY ==
[2018-11-07] MEDS ORDERED: IBUPROFEN 800 MG TABLET PO ONE (12:20)
[2018-11-07] MEDS ORDERED: CLINDAMYCIN HCL 150 MG CAPSULE PO ONE (12:20)
[2018-11-07] MEDS ORDERED: OXYCODONE-ACETAMINOPHEN 5-325 MG TABLET PO ONE (12:20)
[2018-11-07 12:21] VITALS: BP 117/92
--- NOTE | 2018-11-07 12:23 | ER Document Report ---
HPI - HPI Time Seen by Provider: 11/07/18 12:11 Onset/Duration: Worse Quality of pain: Achy Pain Level: 4 Context: Patient presents complaining of sore throat and dental pain. Patient states she has chronic dental pain for the past year and a half that worsened 2 days ago. Patient denies any fever or facial swelling. Associated Symptoms: Other - Dental pain. denies: Fever Exacerbated by: Denies Relieved by: Denies Similar symptoms previously: Yes Recently seen / treated by doctor: No - ROS ROS below otherwise negative: Yes Systems Reviewed and Negative: Yes All other systems reviewed and negative - CONSTITUTIONAL Constitutional: DENIES: Fever, Chills - EENT Notes: Dental pain - NEURO Neurology: REPORTS: Headache - GASTROINTESTINAL Gastrointestinal: DENIES: Nausea, Patient vomiting - REPRODUCTIVE Reproductive: DENIES: : - MUSCULOSKELETAL Musculoskeletal: DENIES: Back Pain, Neck Pain - DERM Skin Color: Normal Skin Problems: None Past Medical History - General Information source: Patient - Social History Smoking Status: Never Smoker Chew tobacco use (# tins/day): No Frequency of alcohol use: None Drug Abuse: None Occupation: [employer] Family History: Reviewed & Not Pertinent Patient has suicidal ideation: No Patient has homicidal ideation: No - Medical History Medical History: Negative Renal/ Medical History: Denies: Hx Peritoneal Dialysis Surgical Hx: Negative - Immunizations Immunizations up to date: Yes Vertical Provider Document - CONSTITUTIONAL Agree With Documented VS: Yes Exam Limitations: No Limitations General Appearance: WD/WN, No Apparent Distress - INFECTION CONTROL TRAVEL OUTSIDE OF THE [place] IN LAST 30 DAYS: No - HEENT HEENT: Atraumatic, Normocephalic. negative: Pharyngeal Exudate, Pharyngeal Tenderness, Pharyngeal Erythema, Tympanic Membrane Red, Tympanic Membrane Bulgin g Mouth Diagram: 1 - Tenderness with gingival inflammation and swelling, no obvious abscess, no trismus, no sublingual or submental swelling - NECK Neck: Normal Inspection, Supple. negative: Lymphadenopathy-Left, Lymphadenopathy-Right - RESPIRATORY Respiratory: Breath Sounds Normal, No Respiratory Distress - CARDIOVASCULAR Cardiovascular: Regular Rate, Regular Rhythm - MUSCULOSKELETAL/EXTREMETIES Musculoskeletal/Extremeties: MAEW - NEURO Level of Consciousness: Awake, Alert, Appropriate Motor/Sensory: No Motor Deficit - DERM Integumentary: Warm, Dry Course - Vital Signs Vital signs: Temp Pulse Resp BP Pulse Ox 98.6 F 78 16 117/92 H 99 11/07/18 12:08 11/07/18 12:08 11/07/18 12:08 11/07/18 12:08 11/07/18 12:08 Discharge - Discharge Clinical Impression: Toothache Condition: Stable Disposition: HOME, SELF-CARE Instructions: Clindamycin ([facility]), Dentist, Toothache ([facility]) Additional Instructions: Return immediately for any new or worsening symptoms Followup with your dental care provider, call tomorrow to make a followup appointment Prescriptions: Clindamycin HCl [Cleocin 300 mg Capsule] 300 mg PO TID #21 capsule Naproxen [Naprosyn 250 Nmg Tablet] 1 tab PO BID #14 tablet Forms: Return to Work Referrals: [facility] [Provider Group] - Follow up as needed
== END 2018-11-07 12:33 | disposition home or self-care (01) ==
LOC: ER 11:54
DX: K08.9 Disorder of teeth and supporting structures, unspecified (principal); J02.9 Acute pharyngitis, unspecified; R51 Headache
CPT/HCPCS: 99282

== ENCOUNTER 2019-01-16 14:25 | Emergency (ER) | payer SELFPAY ==
[2019-01-16] MEDS ORDERED: PREDNISONE 20 MG TABLET PO ONE (15:54)
[2019-01-16] MEDS ORDERED: IPRATROPIUM/ALBUTEROL 0.5-2.5 MG/3 ML AMPUL NEB ONE (15:55)
--- NOTE | 2019-01-16 15:56 | ER Document Report ---
HPI - HPI Time Seen by Provider: 01/16/19 15:41 Pain Level: 5 Notes: Patient is an otherwise healthy 23-year-old female who presents with chief complaint of left ear pain, body aches, fever and congestion. Patient reports that the symptoms have been going on for 2 days. Patient denies any nausea, vomiting, diarrhea, dysuria or abnormal vaginal discharge. Patient reports her significant other had similar symptoms a few days ago. - REPRODUCTIVE Reproductive: DENIES: : Past Medical History - General Information source: Patient - Social History Smoking Status: Current Some Day Smoker Frequency of alcohol use: None Drug Abuse: None Family History: Reviewed & Not Pertinent - Medical History Medical History: Negative Renal/ Medical History: Denies: Hx Peritoneal Dialysis Surgical Hx: Negative - Immunizations Immunizations up to date: Yes Vertical Provider Document - CONSTITUTIONAL Notes: PHYSICAL EXAMINATION: GENERAL: Well-appearing, well-nourished and in no acute distress. HEAD: Atraumatic, normocephalic. EYES: Pupils equal round and reactive to light, extraocular movements intact, conjunctiva are normal. ENT: Nares patent, oropharynx clear without exudates. Moist mucous membranes. Right tympanic membrane unremarkable. Left tympanic membrane erythematous and bulging. No evidence of perforation. NECK: Normal range of motion, supple without lymphadenopathy LUNGS: Mild expiratory wheezes noted bilaterally. HEART: Regular rate and rhythm without murmurs ABDOMEN: Soft, nontender, nondistended abdomen. No guarding, no rebound. No masses appreciated. Female : No CVA tenderness. Musculoskeletal: Normal range of motion, no pitting or edema. No cyanosis. NEUROLOGICAL: Cranial nerves grossly intact. Normal speech, normal gait. Normal sensory, motor exams PSYCH: Normal mood, normal affect. SKIN: Warm, Dry, normal turgor, no rashes or lesions noted. - INFECTION CONTROL TRAVEL OUTSIDE OF THE [place] IN LAST 30 DAYS: No Course - Re-evaluation Re-evalutation: Patient was initially wheezing at time of initial evaluation, these wheezes have resolved after administration of breathing treatment here in the emergency department. Patient was also given 60 mg of prednisone. Patient is positive for influenza A. Patient does have mild tachycardia, denies any nausea, vomiting or diarrhea. Patient does report that her heart rate usually runs between 100-105. Patient's physical examination is also positive for acute otitis media. Patient will be treated for otitis media with azithromycin as patient has allergy to amoxicillin, states that she had hives and swelling. - Vital Signs Vital signs: Temp Pulse Resp BP Pulse Ox 100.2 F 114 H 14 142/85 H 98 01/16/19 14:29 01/16/19 14:29 01/16/19 14:29 01/16/19 14:29 01/16/19 14:29 Discharge - Discharge Clinical Impression: Influenza A Otitis media Qualifiers: Otitis media type: unspecified Laterality: left Qualified Code(s): H66.92 - Otitis media, unspecified, left ear Condition: Stable Disposition: HOME, SELF-CARE Instructions: Influenza ([facility]) [id number], Otitis Media ([facility]) Additional Instructions: Please take medications as prescribed. The cheapest place to get them is most likely across the street at [facility]. You have already been given your dose for today to you may wait till tomorrow to get them filled if you need to. Please return to the emergency department with any new or worsening symptoms. Prescriptions: Azithromycin [Zithromax 250 mg Tablet] 250 mg PO DAILY #4 tablet Prednisone [Deltasone 20 mg Tablet] 3 tab PO DAILY 4 Days #12 tablet Forms: Return to Work
[2019-01-16] MEDS ORDERED: AZITHROMYCIN 250 MG TABLET PO ONE (16:11)
[2019-01-16 16:46] LABS: A TYPE INFLUENZA AG POSITIVE (NEGATIVE); B INFLUENZA AG NEGATIVE (NEGATIVE)
[2019-01-16] MEDS ORDERED: ACETAMINOPHEN 325 MG TABLET PO ONE (17:37)
[2019-01-16] MEDS ORDERED: IBUPROFEN 600 MG TABLET PO ONE (17:37)
[2019-01-16 17:48] VITALS: BP 126/87
== END 2019-01-16 17:45 | disposition home or self-care (01) ==
LOC: ER 14:25
DX: J10.1 Influenza due to other identified influenza virus with other respiratory manifestations (principal); H66.92 Otitis media, unspecified, left ear; H92.02 Otalgia, left ear; M79.10 Myalgia, unspecified site; R50.9 Fever, unspecified; R09.81 Nasal congestion; F17.200 Nicotine dependence, unspecified, uncomplicated
CPT/HCPCS: 94640; 99283; 87804; J7512; J7620

== ENCOUNTER 2019-01-21 13:50 | Emergency (ER) | payer SELFPAY ==
[2019-01-21 14:04] VITALS: BP 147/97
[2019-01-21] MEDS ORDERED: LEVOFLOXACIN 500 MG TABLET PO ONE (15:02)
[2019-01-21] MEDS ORDERED: CIPROFLOXACIN HCL/DEXAMETH OTIC DROP 7.5 ML AS ONE (15:02)
--- NOTE | 2019-01-21 15:08 | ER Document Report ---
ED ENT - General Chief Complaint: Flu Symptoms Stated Complaint: FLU LIKE SYMPTOMS Time Seen by Provider: 01/21/19 14:22 Primary Care Provider: DONNA ARNOLD MD [ACTIVE STAFF] - Follow up tomorrow Mode of Arrival: Ambulatory Information source: Patient Notes: 23-year-old female presented to ED for complaint of continued upper respiratory infection symptoms as well as left ear pain. She states she was seen last week and diagnosed with flu and a left ear infection and started on steroids and antibiotics. She states she took her entire prescription of azithromycin as instructed. She states she is allergic to amoxicillin. She states she has had multiple problems with his ear and she has had having decreased hearing at this time. There is no redness swelling or inflammation to the ear canal it is all to the tympanic membrane. Insulted Dr. Montalvo who came and looked at the ear drawn he states she still has a significant otitis media that I should consult the ears nose and throat physician. TRAVEL OUTSIDE OF THE [place] IN LAST 30 DAYS: No - HPI Patient complains to provider of: Ear problem, Nose problem, Throat problem Onset: Last week Onset/Duration: Worse Quality of pain: Sharp, Stabbing Severity: Moderate Pain Level: 4 Context: Recent Illness Location of pain: Ears, Nose, Sinus, Throat Associated symptoms: Congestion, Cough, Ear pain, Fever, Runny nose, Sinus pain, Sinus drainage, Sore throat Similar symptoms previously: Yes Recently seen / treated by doctor: Yes - Related Data Allergies/Adverse Reactions: amoxicillin [Amoxicillin] Allergy (Verified 01/21/19 13:51) Past Medical History - General Information source: Patient - Social History Smoking Status: Current Every Day Smoker Cigarette use (# per day): Yes - 1-2 cigarettes a day Chew tobacco use (# tins/day): No Smoking Education Provided: Yes - 4 minutes Frequency of alcohol use: None Drug Abuse: None Occupation: [employer] Lives with: Spouse/Significant other Family History: Reviewed & Not Pertinent Patient has suicidal ideation: No Patient has homicidal ideation: No - Past Medical History Cardiac Medical History: Reports: None Pulmonary Medical History: Reports: None EENT Medical History: Reports: None Neurological Medical History: Reports: None Endocrine Medical History: Reports: None Renal/ Medical History: Reports: None Malignancy Medical History: Reports: None GI Medical History: Reports: None Musculoskeletal Medical History: Reports None Skin Medical History: Reports None Psychiatric Medical History: Reports: None Traumatic Medical History: Reports: None Infectious Medical History: Reports: None Surgical Hx: Negative Past Surgical History: Reports: None - Immunizations Immunizations up to date: Yes Review of Systems - Review of Systems Constitutional: No symptoms reported EENT: Ear pain - Left ear, Nose congestion, Nose discharge, Sinus pressure, Sinus discharge, Throat pain Cardiovascular: No symptoms reported Respiratory: Cough Gastrointestinal: No symptoms reported Genitourinary: No symptoms reported Female Genitourinary: No symptoms reported Musculoskeletal: No symptoms reported Skin: No symptoms reported Hematologic/Lymphatic: No symptoms reported Neurological/Psychological: No symptoms reported Physical Exam - Vital signs Vitals: Temp Pulse Resp BP Pulse Ox 98.5 F 95 16 147/97 H 96 01/21/19 13:57 01/21/19 13:57 01/21/19 13:57 01/21/19 13:57 01/21/19 13:57 Interpretation: Normal - General General appearance: Appears well, Alert - HEENT Head: Normocephalic, Atraumatic Eyes: Normal Pupils: PERRL Ears: Other - Pain with movement of any part of the ear External canal: Normal. No: Blood in canal, Cerumen impaction, Erythema, Foreign body, Swollen Tympanic membrane: Bulging, Injected, Loss of landmarks, Serous effusion Sinus: Tenderness Nasal: Purulent discharge, Swelling Mouth/Lips: Normal Mucous membranes: Normal Pharynx: Post nasal drainage. No: Erythema, Exudate, Peritonsillar abscess Neck: Anterior cervical chain - Respiratory Respiratory status: No respiratory distress Chest status: Nontender Breath sounds: Nonproductive cough Chest palpation: Normal - Cardiovascular Rhythm: Regular Heart sounds: Normal auscultation Murmur: No - Abdominal Inspection: Normal Distension: No distension Bowel sounds: Normal Tenderness: Nontender Organomegaly: No organomegaly - Back Back: Normal, Nontender - Extremities General upper extremity: Normal inspection, Nontender, Normal color, Normal ROM, Normal temperature General lower extremity: Normal inspection, Nontender, Normal color, Normal ROM, Normal temperature, Normal weight bearing. No: Gerson's sign - Neurological Neuro grossly intact: Yes Cognition: Normal Orientation: AAOx4 [place] Coma Scale Eye Opening: Spontaneous Zach Coma Scale Verbal: Oriented Zach Coma Scale Motor: Obeys Commands Zach Coma Scale Total: 15 Speech: Normal Motor strength normal: LUE, RUE, LLE, RLE Sensory: Normal - Psychological Associated symptoms: Normal affect, Normal mood - Skin Skin Temperature: Warm Skin Moisture: Dry Skin Color: Normal Course - Re-evaluation Re-evalutation: 01/21/19 16:[address] Montalvo who came and looked at the ear. He recommended I call the ears nose and throat doctor. I consulted who stated that he felt that it was not an otitis media because otitis externa is are more prevalent in this age group with red tympanic membranes. He recommended treating the patient with Levaquin and Ciprodex eardrops. I have ordered these and had the for the patient and I also requested him to follow-up with the patient. He stated that the patient should call in the morning and schedule a follow-up appointment. I did instruct the patient she needed to take the medications and to follow-up with the ears nose and throat. Patient verbalized understanding and agreement with treatment plan. - Vital Signs Vital signs: Temp Pulse Resp BP Pulse Ox 98.5 F 95 16 147/97 H 96 01/21/19 13:57 01/21/19 13:57 01/21/19 13:57 01/21/19 13:57 01/21/19 13:57 Discharge - Discharge Clinical Impression: Otitis media Qualifiers: Otitis media type: suppurative Chronicity: acute Laterality: left Recurrence: not specified as recurrent Spontaneous tympanic membrane rupture: without spontaneous rupture Qualified Code(s): H66.002 - Acute suppurative otitis media without spontaneous rupture of ear drum, left ear URI (upper respiratory infection) Qualifiers: URI type: unspecified viral URI Qualified Code(s): J06.9 - Acute upper respiratory infection, unspecified Condition: Stable Disposition: HOME, SELF-CARE Instructions: Family Physicians / Practices Additional Instructions: UPPER RESPIRATORY ILLNESS: You have a viral infection of the respiratory passages -- a "cold." This common infection causes nasal congestion, drainage, and often sore throat and cough. It is highly contagious. The disease usually lasts about 10 to 14 days. There is no "cure" for the viral infection -- it must run its course. If there is a complication, such as bacterial infection in the nose, sinuses, middle ear, or bronchial tubes, antibiotics may be required. The antibiotics won't affect the virus. Drink plenty of fluids. A humidifier may help. An expectorant medication or decongestant may make you more comfortable. Use acetaminophen or ibuprofen for fever or aches. See the doctor if fever persists over two days, if there is any significant worsening of your symptoms, or if you simply fail to improve as expected. OTITIS MEDIA: You have a middle ear infection (otitis media). This is usually a complication of a cold or sore throat. The middle ear cavity becomes filled with infection. Pressure and stretching of the ear drum cause pain. Antibiotics are required. A 10 day course is usually prescribed. A decongestant may be recommended if you have a "runny nose." You may need anesthetic drops or other pain medication. A follow-up exam may be recommended to make sure the infection has completely cleared. If the ear begins to drain, it means the ear drum has ruptured. This will usually heal spontaneously. However, it means you should keep the ear dry until re-examined by a doctor. Call the physician or return for examination at once if there is severe headache, stiff neck, confusion, increasing fever, or dizziness. You should improve significantly within two days. If you're not better, call the doctor. Levofloxacain You have been given an antibacterial agent, levofloxacin (Levaquin). This medicine is not related to the penicillins, sulfas, cephalosporins, or tetracyclines. It is often given to patients who are allergic to these drugs. It has been chosen for you either because other drugs are not appropriate, or because of the nature of your problem. Levaquin should not be taken with antacids, as these can decrease its effectiveness. It can be taken without regard to meals. LEVAQUIN SHOULD NOT BE TAKEN BY CHILDREN, NURSING WOMEN, OR WOMEN. Although Levaquin is usually well-tolerated, common side effects can include nausea and diarrhea. Contact your doctor if you experience any unusual symptoms while on this medication, such as joint pain or swelling, shortness of breath, wheezing, faintness, or hives. USE OF EAR DROPS: Your ear drops won't do much good if they don't get all the way in. To help the ear drops penetrate all the way to the ear drum, use the following technique. If you encounter problems of any kind, notify the physician. (1) Lay your head sideways on a pillow. (2) Place the dropper tip just barely inside the ear canal, almost touching the bottom side of the canal. The liquid is tolerated better on the bottom of the canal. (3) Squeeze out the appropriate amount of medicine, and remove the dropper. (4) Grab the back of the ear (just behind the ear canal) between your index finger and thumb. (5) Tug up, then let the ear drop back. Repeat several times. This pumps the medicine down. (6) Wait five minutes, then place a cotton ball in the ear canal to catch and hold the medicine. CIPROFLOXACIN: You have been given an antibacterial agent, ciprofloxacin (Cipro). This medicine is not related to the penicillins, sulfas, cephalosporins, or tetracyclines. It is often given to patients who are allergic to these drugs. It has been chosen for you either because other drugs are not appropriate, or because of the nature of your problem. Cipro should not be taken with antacids, as these can decrease its effectiveness. It can be taken without regard to meals. CIPRO SHOULD NOT BE TAKEN BY CHILDREN, NURSING WOMEN, OR WOMEN. Although Cipro is usually well-tolerated, common side effects can include nausea and diarrhea. Contact your doctor if you experience any unusual symptoms while on this medication, such as joint pain or swelling, shortness of breath, wheezing, faintness, or hives. USE OF ACETAMINOPHEN (Tylenol): Acetaminophen may be taken for pain relief or fever control. It's much safer than aspirin, offering a wider range of "safe" dosages. It is safe during . Some brand names are Tylenol, Panadol, Datril, Anacin 3, Tempra, and Liquiprin. Acetaminophen can be repeated every four hours. The following a re maximum recommended dosages: WEIGHT Dose Drops Elixir Chewable(80mg) (LBS.) drprs=droppers tsp=teaspoon 6 40 mg 0.4 ml (1/2) 6-11 80 mg 0.8 ml (full) tsp 1 tab 12-16 120 mg 1 1/2 drprs 3/4 tsp 1 1/2 tabs 17-23 160 mg 2 drprs 1 tsp 2 tabs 24-30 240 mg 3 drprs 1 1/2 tsp 3 tabs 30-35 320 mg 2 tsp 4 tabs 36-41 360 mg 2 1/4 tsp 4 1/2 tabs 42-47 400 mg 2 1/2 tsp 5 tabs 48-53 480 mg 3 tsp 6 tabs 54-59 520 mg 3 1/4 tsp 6 1/2 tabs 60-64 560 mg 3 1/2 tsp 7 tabs 65-70 600 mg 3 3/4 tsp 7 1/2 tabs 71-76 640 mg 4 tsp 8 tabs 77-82 720 mg 4 1/2 tsp 9 tabs 83-88 800 mg 5 tsp 10 tabs >89 pounds or adults 650 mg to 900 mg Acetaminophen can be repeated every four hours. Maximum dose not to exceed 4000 mg a day. These maximum recommended dosages are slightly higher than the dosages written on the product container, but these dosages are very safe and below the toxic dosage for acetaminophen. SMOKING: If you smoke, you should stop smoking. The tar and chemicals in cigarette smoke are harmful. Smoking has been shown to cause: emphysema chronic bronchitis lung cancer mouth and throat cancer stomach and pancreas cancer premature aging defects In addition, smoking increases ear and lung infections in children of smokers. FOLLOW-UP CARE: If you have been referred to a physician for follow-up care, call the [facility] office for an appointment as you were instructed or within the next two days. If you experience worsening or a significant change in your symptoms, notify the physician immediately or return to the Emergency Department at any time for re-evaluation. Prescriptions: Ciprofloxacin HCl/Dexameth [Ciprodex Otic Suspension 7.5 ml Bottle] 4 drop LFT_EAR BID #1 bottle Levofloxacin [Levaquin 500 mg Tablet] 500 mg PO DAILY #10 tablet Forms: Elevated Blood Pressure, Smoking Cessation Education, Return to Work Referrals: DONNA ARNOLD MD [ACTIVE STAFF] - Follow up tomorrow
== END 2019-01-21 15:18 | disposition home or self-care (01) ==
LOC: ER 13:50
DX: H66.002 Acute suppurative otitis media without spontaneous rupture of ear drum, left ear (principal); J06.9 Acute upper respiratory infection, unspecified; H92.02 Otalgia, left ear; R09.81 Nasal congestion; R05 Cough; R50.9 Fever, unspecified; R09.89 Other specified symptoms and signs involving the circulatory and respiratory systems; R51 Headache; J02.9 Acute pharyngitis, unspecified; F17.210 Nicotine dependence, cigarettes, uncomplicated
CPT/HCPCS: 99406; 99282; J3490

== ENCOUNTER 2019-05-01 14:10 | Emergency (ER) | payer SELFPAY ==
[2019-05-01 14:23] VITALS: BP 129/85
--- NOTE | 2019-05-01 15:30 | ER Document Report ---
HPI - HPI Time Seen by Provider: 05/01/19 14:53 Pain Level: 4 Context: Patient is a 24-year-old female presents to the emergency department with a chief complaint of sore throat. Patient states she developed a sore throat 2 days ago and has since noticed a foul-smelling taste in her mouth and swelling to the right side of her throat. Patient denies fever or chills. Patient denies nausea or vomiting or diarrhea. Patient denies abdominal pain. Patient denies neck pain. Patient also complains of right ear pain. Patient states she does have a history of frequent ear infections. Denies difficulty swallowing. - CONSTITUTIONAL Constitutional: DENIES: Fever, Chills - EENT EENT: REPORTS: Sore Throat, Ear Pain - RIGHT. DENIES: Eye problems - NEURO Neurology: DENIES: Headache, Weakness, Vision blurred, Dizzinesss / Vertigo - CARDIOVASCULAR Cardiovascular: DENIES: Chest pain - RESPIRATORY Respiratory: REPORTS: Coughing. DENIES: Trouble Breathing - GASTROINTESTINAL Gastrointestinal: DENIES: Abdominal Pain, Black / Bloody Stools - URINARY Urinary: REPORTS: Frequency. DENIES: Dysuria, Urgency - REPRODUCTIVE Reproductive: DENIES: : - MUSCULOSKELETAL Musculoskeletal: DENIES: Extremity pain Past Medical History - General Information source: Patient - Social History Smoking Status: Current Every Day Smoker Chew tobacco use (# tins/day): No Frequency of alcohol use: None Drug Abuse: None Lives with: Spouse/Significant other Family History: Reviewed & Not Pertinent Patient has suicidal ideation: No Patient has homicidal ideation: No - Past Medical History Cardiac Medical History: Reports: None Pulmonary Medical History: Reports: None EENT Medical History: Reports: None Neurological Medical History: Reports: None Endocrine Medical History: Reports: None Renal/ Medical History: Reports: None. Denies: Hx Peritoneal Dialysis Malignancy Medical History: Reports: None GI Medical History: Reports: None Musculoskeletal Medical History: Reports None Skin Medical History: Reports None Psychiatric Medical History: Reports: None Traumatic Medical History: Reports: None Infectious Medical History: Reports: None Surgical Hx: Negative - Immunizations Immunizations up to date: Yes Vertical Provider Document - CONSTITUTIONAL Agree With Documented VS: Yes Exam Limitations: No Limitations General Appearance: No Apparent Distress Notes: GENERAL: Well-appearing, well-nourished and in no acute distress. HEAD: Atraumatic, normocephalic. EYES: Pupils equal round and reactive to light, extraocular movements intact, sclera anicteric, conjunctiva are normal. ENT: TMs normal, nares patent, oropharynx clear without exudates. Moist mucous membranes. NECK: Normal range of motion, supple without lymphadenopathy or JVD. Right anterior cervical lymph node tenderness. Pharynx slightly erythematous, airway is patent without edema, uvula is midline, right tonsillar erythema with white exudate. LUNGS: Breath sounds clear to auscultation bilaterally and equal. No wheezes rales or rhonchi. HEART: Regular rate and rhythm without murmurs, rubs or gallops. ABDOMEN: Soft, nontender, normoactive bowel sounds. No guarding, no rebound. No masses appreciated. BACK: No cervical, thoracic, lumbar midline tenderness. No saddle anesthesia, normal distal neurovascular exam. GENITOURINARY: Deferred. EXTREMITIES: Normal range of motion, no pitting or edema. No clubbing or cyanosis. NEUROLOGICAL: Cranial nerves II through XII grossly intact. Normal speech, normal gait. PSYCH: Normal mood, normal affect. SKIN: Warm, Dry, normal turgor, no rashes or lesions noted. - INFECTION CONTROL TRAVEL OUTSIDE OF THE [place] IN LAST 30 DAYS: No Course - Re-evaluation Re-evalutation: 05/01/19 15:30 Strep test is positive for strep throat. Patient is allergic to amoxicillin. Patient states that she has not had much in out appetite so she is concerned with taking clindamycin. I will prescribe patient azithromycin. Patient to return to the emergency department for worsening signs or symptoms to include difficulty swallowing, throat swelling, high fever or any worsening signs or symptoms despite being on antibiotics for 48 hours. - Vital Signs Vital signs: Temp Pulse Resp BP Pulse Ox 98.7 F 89 18 129/85 H 99 05/01/19 14:21 05/01/19 14:21 05/01/19 14:21 05/01/19 14:21 05/01/19 14:21 Discharge - Discharge Clinical Impression: Strep pharyngitis Condition: Stable Disposition: HOME, SELF-CARE Instructions: Strep Throat ([facility]) Additional Instructions: You were seen in the emergency department for sore throat. Your test was positive for strep. Please take Tylenol or ibuprofen as needed for pain. Please take all your antibiotics as prescribed. Please return the emergency department if you are not feeling better within 48 hours or if you have difficulty breathing, increasing throat pain, high fever, rash or frequent vomiting. Strep Throat Your sore throat is due to the streptococcus germ (strep throat). Strep throat usually makes you feel quite ill with fever and aches, headache, swollen sore throat, and tender bumps under the angles of the jaw. Strep throat requires antibiotic treatment. Although the sore throat may go away by itself, complications such as rheumatic fever, kidney disease, or throat abscess can occur. We usually prescribe antibiotics by mouth. Be sure to take the medicine until it's gone. If you stop early, the strep may come back. If you are vomiting, are severely ill, or can't remember to take pills, we can give you an antibiotic shot. Take acetaminophen or ibuprofen for pain and fever. Sip frequent clear liquids, or use popsicles or ice chips. Anesthetic sprays or lozenges may help. Make sure the air in the room is not too dry. Avoid using decongestants or antihistamines. Call the doctor if there is no improvement in three days, or if you have difficulty breathing, increasing throat pain, high fever, rash, or frequent vomiting. Prescriptions: Azithromycin 500 mg PO DAILY #5 tablet Azithromycin [Zithromax 250 mg Tablet] 250 mg PO DAILY 4 Days #4 tablet Forms: Return to Work
[2019-05-01] MEDS ORDERED: AZITHROMYCIN 250 MG TABLET PO ONE (15:34)
== END 2019-05-01 15:42 | disposition home or self-care (01) ==
LOC: ER 14:10
DX: J02.0 Streptococcal pharyngitis (principal); H92.01 Otalgia, right ear; R05 Cough; R35.0 Frequency of micturition; F17.200 Nicotine dependence, unspecified, uncomplicated; Z88.0 Allergy status to penicillin
CPT/HCPCS: 87880; 99282

== ENCOUNTER 2019-07-03 18:04 | Emergency (ER) | payer SELFPAY ==
--- NOTE | 2019-07-03 18:48 | ER Document Report ---
ED Medical Screen (RME) - General Chief Complaint: Abdominal Pain Stated Complaint: ABDOMINAL PAIN Time Seen by Provider: 07/03/19 18:45 Primary Care Provider: ROSALIE HARDIN MD [EMERITUS] - Follow up as needed SHANKAR SAN MD [ACTIVE STAFF] - Follow up as needed MOSHE LEWIS MD [EMERITUS] - Follow up as needed Mode of Arrival: Ambulatory Information source: Patient Notes: 24-year-old female presented to ED for left pelvic pain. She states it started 2 days ago during intercourse. She states it is not subsided since then. She states she does not have any vaginal pain she does have pain inside of her pelvis. She states her abdomen feels bloated. Patient states she does smoke half pack a day does not drink or do any drugs. Patient is alert oriented respirations regular and unlabored speaking in full sentences. TRAVEL OUTSIDE OF THE [place] IN LAST 30 DAYS: No - Related Data Allergies/Adverse Reactions: amoxicillin [Amoxicillin] Allergy (Verified 07/03/19 18:06) Past Medical History Renal/ Medical History: Denies: Hx Peritoneal Dialysis - Immunizations Immunizations up to date: Yes Physical Exam - Vital signs Vitals: Temp Pulse Resp BP Pulse Ox 98.8 F 90 18 121/97 H 96 07/03/19 18:11 07/03/19 18:11 07/03/19 18:11 07/03/19 18:11 07/03/19 18:11 Course - Vital Signs Vital signs: Temp Pulse Resp BP Pulse Ox 98.2 F 71 20 120/96 H 97 07/03/19 21:00 07/03/19 21:00 07/03/19 21:00 07/03/19 21:00 07/03/19 21:00 - Laboratory Result Diagrams: 07/03/19 19:15 07/03/19 19:15 Laboratory results interpreted by me: 07/03/19 19:15 RDW 15.3 H Doctor's Discharge - Discharge Clinical Impression: Ovarian cyst Condition: Stable Disposition: HOME, SELF-CARE Additional Instructions: Today been diagnosed with an ovarian cyst. These typically occur in the middle of your typical menstrual cycle. The pain should last for no more than 3-4 days. For your pain: Take ibuprofen 600 mg and acetaminophen 1000 mg every 6 hours together as needed for pain. If this does not control your pain you may take 1 tablet of hydrocodone every 4 hours as needed. Please follow-up with your [facility] regarding today's visit. If you have multiple recurrent cyst that continue to cause you pain like this, you may require hormone therapy such as oral control pills to prevent recurrence of the same. Return if you develop fever, nausea, vomiting, worsening abdominal pain, pass out, or have any other symptoms that are worrisome to you. Forms: Return to Work, Treatment of Relative/Child Referrals: ROSALIE HARDIN MD [EMERITUS] - Follow up as needed SHANKAR SAN MD [ACTIVE STAFF] - Follow up as needed MOSHE LEWIS MD [EMERITUS] - Follow up as needed
[2019-07-03 19:47] LABS: ABSOLUTE EOSINOPHILS # (AUTO) 0.2 10^3/uL (0.0-0.6); ABSOLUTE MONOCYTES (AUTO) 0.5 10^3/uL (0.1-1.4); BASOPHILS % (AUTO) 0.6 % (0-2); EOSINOPHILS % (AUTO) 2.7 % (0-6); HEMATOCRIT 38.7 % (36.0-47.0); HEMOGLOBIN 13.2 g/dL (12.0-15.5); LYMPHOCYTES % (AUTO) 38.8 % (13-45); MEAN CORPUSCULAR HEMOGLOBIN 29.2 pg (27.0-33.4); MEAN CORPUSCULAR HGB CONC 34.1 g/dL (32.0-36.0); MEAN CORPUSCULAR VOLUME 86 fl (80-97); MONOCYTES % (AUTO) 6.1 % (3-13); PLATELET COUNT 270 10^3/uL (150-450); RED BLOOD COUNT 4.52 10^6/uL (3.72-5.28); RED CELL DISTRIBUTION WIDTH 15.3 % (11.5-14.0); SEGMENTED NEUTROPHILS % (AUTO) 51.8 % (42-78); TOTAL CELLS COUNTED % (AUTO) 100 %; WHITE BLOOD COUNT 7.8 10^3/uL (4.0-10.5)
[2019-07-03 19:49] LABS: APPEARANCE,URINE CLEAR; BILIRUBIN,URINE NEGATIVE (NEGATIVE); COLOR,URINE STRAW; GLUCOSE, URINE NEGATIVE (NEGATIVE); KETONES,URINE NEGATIVE (NEGATIVE); LEUKOCYTE ESTERASE,URINE NEGATIVE (NEGATIVE); NITRITE,URINE NEGATIVE (NEGATIVE); PROTEIN,URINE NEGATIVE (NEGATIVE); URINE SPECIFIC GRAVITY 1.009; UROBILINOGEN,URINE NEGATIVE mg/dL (<2.0)
[2019-07-03 19:58] LABS: ALBUMIN 4.4 g/dL (3.5-5.0); ALKALINE PHOSPHATASE 48 U/L (38-126); ANION GAP 7 (5-19); ASPARTATE AMINO TRANSFERASE 22 U/L (14-36); BILIRUBIN,DIRECT 0.1 mg/dL (0.0-0.4); BILIRUBIN,TOTAL 0.4 mg/dL (0.2-1.3); BLOOD UREA NITROGEN 13 mg/dL (7-20); CALCIUM 9.9 mg/dL (8.4-10.2); CARBON DIOXIDE 27 mmol/L (22-30); CHLORIDE 103 mmol/L (98-107); GLUCOSE 92 mg/dL (75-110); POTASSIUM 4.5 mmol/L (3.6-5.0); TOTAL PROTEIN 7.3 g/dL (6.3-8.2)
[2019-07-03 20:05] LABS: ADD MANUAL MICROSCOPIC YES
--- NOTE | 2019-07-03 20:27 | RADIOLOGY REPORT (SQ) ---
EXAM DESCRIPTION: US PELVIS TRANSVAGINAL COMPLETED DATE/TME: 07/03/2019 18:47 CLINICAL HISTORY: 24 years Female, LEFT PELVIC PAIN COMPARISON: 03/10/2018 TECHNIQUE: Complete pelvic ultrasound examination fracture. FINDINGS: Uterus: The uterus measures 8.8 x 3 Endometrium: Endometrial thickness of 0.3 cm. Right ovary: Right ovary measures 2.6 x 2.3 x 3.2 cm. Left ovary: The left ovary measures 3.4 x 3.0 x 2.3 cm. Indeterminate probably benign left ovarian cyst measuring 3.0 x 1.8 x 1.9 cm with reticulated internal echoes possibly representing a hemorrhagic cyst. Adnexa: No large adnexal masses. Small amount of free pelvic fluid. Free fluid: Small amount of free pelvic fluid. Duplex imaging: Only color Doppler imaging of the ovaries was performed which does demonstrate blood flow however evaluation is suboptimal without spectral imaging. IMPRESSION: 1. 3.0 cm indeterminate left ovarian cyst. Recommend pelvic US follow-up in 6-12 weeks; if unchanged, continue follow-up with US OR MRI with IV contrast - if follow-up studies do not confirm endometrioma or dermoid, consider surgical evaluation. If cyst has internal nodule without blood flow/enhancing, recommend pelvic MRI with IV contrast or surgical evaluation. Reference: Radiology 2010 Sep;256(3):943-54 2. Small amount of free pelvic fluid. This may be physiologic.
[2019-07-03] MEDS ORDERED: HYDROCODONE/ACETAMINOPHEN 5-325 MG (6 TAB/ER DISP) PO PRN (20:44)
--- NOTE | 2019-07-03 20:49 | ER Document Report ---
HPI - HPI Time Seen by Provider: 07/03/19 18:45 Pain Level: 3 Notes: Patient is an otherwise healthy 24-year-old female presenting with chief complaint of left-sided pelvic pain. Patient reports history of ovarian cysts in the past. Patient reports pain started after having intercourse. She denies any abnormal discharge, abnormal vaginal bleeding, nausea, vomiting or diarrhea. - REPRODUCTIVE LMP: 06/29/2019 Reproductive: DENIES: : - DERM Skin Color: Normal Past Medical History - General Information source: Patient - Social History Smoking Status: Current Every Day Smoker Chew tobacco use (# tins/day): No Frequency of alcohol use: Occasional Drug Abuse: None Family History: Reviewed & Not Pertinent Patient has suicidal ideation: No Patient has homicidal ideation: No Renal/ Medical History: Reports: Hx Ovarian Cysts. Denies: Hx Peritoneal Dialysis Surgical Hx: Negative - Immunizations Immunizations up to date: Yes Vertical Provider Document - CONSTITUTIONAL Notes: PHYSICAL EXAMINATION: GENERAL: Well-appearing, well-nourished and in no acute distress. HEAD: Atraumatic, normocephalic. EYES: Pupils equal round and reactive to light, extraocular movements intact, conjunctiva are normal. ENT: Nares patent, oropharynx clear without exudates. Moist mucous membranes. NECK: Normal range of motion, supple without lymphadenopathy LUNGS: Breath sounds clear to auscultation bilaterally and equal. No wheezes rales or rhonchi. HEART: Regular rate and rhythm without murmurs ABDOMEN: Soft, nontender, nondistended abdomen. No guarding, no rebound. No masses appreciated. Female : Mild tenderness to palpation over the left side of the pelvis. Speculum exam declined. Musculoskeletal: Normal range of motion, no pitting or edema. No cyanosis. NEUROLOGICAL: Cranial nerves grossly intact. Normal speech, normal gait. Normal sensory, motor exams PSYCH: Normal mood, normal affect. SKIN: Warm, Dry, normal turgor, no rashes or lesions noted. - INFECTION CONTROL TRAVEL OUTSIDE OF THE [place] IN LAST 30 DAYS: No Course - Re-evaluation Re-evalutation: Patient appears well, nontoxic is alert, oriented and answering all questions appropriately. Laboratory work-up was unremarkable. Left ovarian cyst noted on transvaginal ultrasound. Patient encouraged to follow-up with [facility] [employer], I gave her a list of the local [employer] in our area. Strict ED return precautions were discussed, patient verbalizes understanding and agreement with same. The patient's emergency department workup and current diagnosis were explained to the patient and or family. Follow-up instructions were provided. Medications if prescribed were discussed. Instructions for when to return to the emergency department including specific worrisome symptoms were discussed with the patient and/or family. - Vital Signs Vital signs: Temp Pulse Resp BP Pulse Ox 98.8 F 90 18 121/97 H 96 07/03/19 18:11 07/03/19 18:11 07/03/19 18:11 07/03/19 18:11 07/03/19 18:11 - Laboratory Result Diagrams: 07/03/19 19:15 07/03/19 19:15 Laboratory results interpreted by me: 07/03/19 19:15 RDW 15.3 H Discharge - Discharge Clinical Impression: Ovarian cyst Qualifiers: Laterality: left Qualified Code(s): N83.202 - Unspecified ovarian cyst, left side Condition: Stable Disposition: HOME, SELF-CARE Additional Instructions: Today been diagnosed with an ovarian cyst. These typically occur in the middle of your typical menstrual cycle. The pain should last for no more than 3-4 days. For your pain: Take ibuprofen 600 mg and acetaminophen 1000 mg every 6 hours together as needed for pain. If this does not control your pain you may take 1 tablet of hydrocodone every 4 hours as needed. Please follow-up with your [facility] regarding today's visit. If you have multiple recurrent cyst that continue to cause you pain like this, you may require hormone therapy such as oral control pills to prevent recurrence of the same. Return if you develop fever, nausea, vomiting, worsening abdominal pain, pass out, or have any other symptoms that are worrisome to you. Forms: Return to Work, Treatment of Relative/Child Referrals: SHANKAR SAN MD [ACTIVE STAFF] - Follow up as needed MOSHE LEWIS MD [EMERITUS] - Follow up as needed ROSALIE HARDIN MD [EMERITUS] - Follow up as needed
[2019-07-03 21:05] VITALS: BP 120/96
== END 2019-07-03 21:05 | disposition home or self-care (01) ==
LOC: ER 18:04
DX: N83.202 Unspecified ovarian cyst, left side (principal); R10.2 Pelvic and perineal pain; F17.200 Nicotine dependence, unspecified, uncomplicated
CPT/HCPCS: 36415; 76830; 80053; 81001; 84703; 85025; 99284